=== PATIENT | female | born 1985 | race Caucasian/White ===

== ENCOUNTER 2023-10-19 17:03 | Emergency (ER) | payer OTHER, SELFPAY ==
[2023-10-19 17:11] VITALS: BP 129/65; PULSE 51; RESP 16; TEMP 36.7; O2SAT 100
--- NOTE | 2023-10-19 17:11 | XRR_ITS ---
PROCEDURE INFORMATION: Exam: XR Left Ankle Exam date and time: 10/19/2023 5:50 PM Age: 37 years old Clinical indication: Injury or trauma; Fall; Other: Swollen; Injury details: PT states that she jumped off of something and her left foot twisted and snapped and she can not put weight on it. PT was at work when this happened, she works at [employer] in [place]. States this happened one hour ago TECHNIQUE: Imaging protocol: Radiologic exam of the left ankle. Views: 3 or more views. COMPARISON: No relevant prior studies available. FINDINGS: Bones/joints: Normal. Soft tissues: Normal. XR/XR ankle LT min 3V* [id number] IMPRESSION: No acute findings.
--- NOTE | 2023-10-19 17:12 | W.ED.GENADLT ---
[facility] - General Adult General: Chief complaint: Extremity Injury, Lower Stated complaint: left foot pain Time Seen by Provider: 10/19/23 17:05 Source: patient Mode of arrival: ambulatory Limitations: no limitations History of Present Illness: 37-year-old female states that she had jumped off a stool just prior to arrival roughly 1 to 2 feet states she inverted her left ankle felt a pop and had severe pain in the left ankle since then. She denies been able to bear weight she denies any knee pain denies any other injuries Associated symptoms: Deny chest pain, dyspnea, headache(s), nausea, rash or vomiting Review of Systems Const: Denies: fever(s), chills, body aches or change in appetite ENMT: Denies: throat pain or dental pain Card: Denies: chest pain Resp: Denies: dyspnea GI: Denies: abdominal pain, nausea, vomiting or diarrhea Musc: Reports: extremity pain; Denies: neck pain or back pain Skin/Breast: Denies: rash Neuro: Denies: headache(s) Physical Exam Const: COMMON NORMALS: no acute distress, patient oriented x3 and healthy appearing HENMT: COMMON NORMALS: normocephalic and atraumatic HEAD & SCALP: normocephalic and atraumatic Eye: COMMON NORMALS: Equal, round and reactive pupils present and EOMs intact bilaterally PUPIL: Yes Equal, round and reactive pupils present Neck/C-Spine: COMMON NORMALS: full ROM and supple Chest: COMMONS NORMALS: normal inspection of the chest Resp: COMMON NORMALS: normal respiratory effort Extremity: COMMON NORMALS: full ROM NARRATIVE EXTREMITY EXAM: Swelling tenderness over left lateral ankle Neuro: COMMON NORMALS: patient oriented x3, moves all extremities and no focal motor deficits Psych: COMMON NORMALS: mental status grossly normal, Normal thought process present and cooperative THOUGHT PROCESS: Normal thought process present Skin: COMMON NORMALS: no rashes or lesions noted and no wounds GENERAL SKIN EXAM: no rashes or lesions noted Course Vital Signs: Vital signs: Vital Signs Temperature 98.1 F 10/19/23 17:11 Pulse Rate 51 L 10/19/23 17:11 Respiratory Rate 16 10/19/23 17:11 Blood Pressure 129/65 10/19/23 17:11 Pulse Oximetry 100 10/19/23 17:11 [facility] - General Adult Medical Decision Making Patient presents here with ankle sprain x-ray shows no fractures she does have quite been swelling pain did immobilizer she is to weight-bear as tolerated we will get her follow-up with podiatry return if worsening. Medical Records I reviewed the patient's medical records. XR interpretation done by ED provider, pending radiology final review ED provider radiology interpretation(s): xr ankle: no acute abnormality Discharge Plan Discharge Patient Disposition: Home Clinical Impression: Ankle sprain and strain Condition: Stable Prescriptions: New hydrocodone-acetaminophen 5-325 mg tablet 1 tab PO Q6H PRN (Reason: pain) Qty: 14 0RF Discharge Orders: Discharge ED (Routine); Ordered 10/19/23 Ordered By: Denisa Fitzpatrick Referrals: Pierre Mcnally DPM [Physician] - 1-3 days Discharge Diet: Advance as tolerated Discharge Activity: Resume usual activity Patient Instructions: Ankle Sprain (ED), Opioid Safety Coding Level of Care Code ED Inspection Machine Tender for David Melendez
[2023-10-19] MEDS: HYDROcodone-acetaminophen 5-325 mg Tablet 1 TAB PO (17:23)
--- NOTE | 2023-10-19 17:52 | XRR_ITS ---
PROCEDURE INFORMATION: Exam: XR Left Foot Exam date and time: 10/19/2023 5:52 PM Age: 37 years old Clinical indication: Injury or trauma; Fall; Other: Swollen; Injury details: PT states that she jumped off of something and her left foot twisted and snapped and she can not put weight on it. PT was at work when this happened, she works at [employer] in [place]. States this happened one hour ago TECHNIQUE: Imaging protocol: Radiologic exam of the left foot. Views: 3 or more views. COMPARISON: CR (LOW EXM, ) 10/19/2023 5:50 PM FINDINGS: Bones/joints: Normal. Soft tissues: Normal. XR/XR foot LT min 3V* [id number] IMPRESSION: No acute findings.
--- NOTE | 2023-10-19 18:00 | DCPLANNER ---
message ortho about er referral
== END 2023-10-19 18:37 | disposition home or self-care (01) ==
PROVIDERS: Emergency Provider Emergency Medicine
DX: S93.402A Sprain of unspecified ligament of left ankle, initial encounter (principal); S96.912A Strain of unspecified muscle and tendon at ankle and foot level, left foot, initial encounter; X50.1XXA Overexertion from prolonged static or awkward postures, initial encounter
CPT/HCPCS: 73610; 73630; 99283

== ENCOUNTER → 2024-01-10 16:20 | Outpatient (BNVA) | payer MEDICAID, SELFPAY | PROVIDERS: Visit Provider Nurse Practitioner | DX: S99.812A Other specified injuries of left ankle, initial encounter (principal); W19.XXXA Unspecified fall, initial encounter | CPT/HCPCS: 73610 ==